=== PATIENT | female | born 1955 | race Caucasian/White ===

== ENCOUNTER 2020-09-01 14:10 | Outpatient (RCR) | payer OTHER, SELFPAY ==
[2020-09-01] MEDS: COVID-19 VACC, MRNA(PFIZER)/PF 30 MCG/0.3 ML SYRINGE IM (11:25)
[2020-09-22] MEDS: COVID-19 VACC, MRNA(PFIZER)/PF 30 MCG/0.3 ML SYRINGE IM (11:35)
== END 2020-11-24 23:59 ==
LOC: IMMUN 14:10
PROVIDERS: PCP Family Medicine; Visit Provider Family Medicine
DX: Z23 Encounter for immunization (principal)
CPT/HCPCS: 0001A; 0002A; 91300